=== PATIENT | male | born 1960 | race Caucasian/White ===

== ENCOUNTER → 2022-03-03 07:33 | Outpatient (BNVA) | payer MEDICAID, SELFPAY | PROVIDERS: Visit Provider Family Medicine Adult Medicine | DX: Z00.00 Encounter for general adult medical examination without abnormal findings (principal); Z13.6 Encounter for screening for cardiovascular disorders; R73.09 Other abnormal glucose; R03.0 Elevated blood-pressure reading, without diagnosis of hypertension; M15.9 Polyosteoarthritis, unspecified | CPT/HCPCS: 80053; 80061; 83036; 84443; 85025; G0103 ==

== ENCOUNTER 2022-03-25 11:24 | Outpatient (CLI) | payer MEDICAID, SELFPAY ==
--- NOTE | 2022-03-25 | XR_ITS ---
WS: [id number] Exam: XR hip BI 2V wo/w pel [id number] Date/Time of Exam: 03/25/2022 12:00 PM Reason For Exam: left hip pain Right hip. Moderate degenerative narrowing of the joint compartment. No fracture or dislocation. Norm al soft tissues. XR/XR hip BI 3-4V wo/w pel [id number] IMPRESSION: 1. Moderate DJD. No fracture. Left hip. No fracture or dislocation. Moderate degenerative thinning of the richard nt compartment. Normal soft tissues. IMPRESSION: 1. Moderate DJD. No fracture or dislocation.
--- NOTE | 2022-03-25 11:56 | XR_ITS ---
WS: [id number] Exam: XR hip BI 2V wo/w pel [id number] Date/Time of Exam: 03/25/2022 12:00 PM Reason For Exam: left hip pain Right hip. Moderate degenerative narrowing of the joint compartment. No fracture or dislocation. Norm al soft tissues.
== END 2022-03-25 11:25 | disposition home or self-care (01) ==
PROVIDERS: PCP Family Medicine Adult Medicine; Visit Provider Family Medicine Adult Medicine
DX: M16.12 Unilateral primary osteoarthritis, left hip (principal)
CPT/HCPCS: 73521; 73522

== ENCOUNTER 2022-04-23 14:26 | Outpatient (CLI) | payer MEDICAID, SELFPAY ==
--- NOTE | 2022-04-23 14:35 | XR_ITS ---
WS: [id number] Cervical spine, 3 views, 04/23/2022 Clinical Data: chronic neck pain Comparison: None. Findings: No compression fractures are seen. There is degenerative disc narrowing at C5-C6 and C6-C7 with osteophyte formation at these levels. There is no prevertebral soft tissue swelling. The odontoi d is unremarkable. The soft tissues of the neck and the lung apices are normal. XR/XR cervical spine 4-5V [id number] Impression: Degenerative disc narrowing at C5-C6 and C6-C7 with accompanying osteophytes.
== END 2022-04-23 14:27 | disposition home or self-care (01) ==
LOC: RAD 14:29
PROVIDERS: PCP Family Medicine Adult Medicine; Visit Provider Family Medicine Adult Medicine
DX: M47.812 Spondylosis without myelopathy or radiculopathy, cervical region (principal); G89.29 Other chronic pain; M25.78 Osteophyte, vertebrae
CPT/HCPCS: 72050

== ENCOUNTER 2022-05-12 06:00 | Outpatient (RCR) | payer MEDICAID, SELFPAY | END 2022-05-28 23:59 | disposition home or self-care (01) | LOC: SPT 06:00 | PROVIDERS: PCP Family Medicine Adult Medicine; Visit Provider Family Medicine Adult Medicine | DX: M47.812 Spondylosis without myelopathy or radiculopathy, cervical region (principal); G89.29 Other chronic pain; M15.9 Polyosteoarthritis, unspecified | CPT/HCPCS: 97110; 97161 ==

== ENCOUNTER 2022-06-07 21:23 | Outpatient (RCR) | payer MEDICAID, SELFPAY | END 2022-06-10 15:55 | disposition home or self-care (01) | LOC: SPT 21:23 | PROVIDERS: PCP Family Medicine Adult Medicine; Visit Provider Family Medicine Adult Medicine | DX: M47.812 Spondylosis without myelopathy or radiculopathy, cervical region (principal); G89.29 Other chronic pain; M15.9 Polyosteoarthritis, unspecified | CPT/HCPCS: 97110 ==